=== PATIENT | male | born 1960 | race Caucasian/White ===

== ENCOUNTER → 2016-10-27 | Emergency (ER) | payer BC ==
[~2016-10-27] VITALS: Ht 165.1 cm; Wt 79.4 kg
[~2016-10-27] MED LIST: ACET1TAB43 PO; ASPI-587 PO; ASPIRIN 81 MG CHEW (CHILDREN'S ASA) PO ONE; ATR20T PO; CALC-80 PO; CARB200T6 PO; CEPH500C PO; CHOLESTEROL MED; EPITOL PO; HYDR-3714 PO; IBUP800T26 PO; LOVA20TA2 PO; MULT-1029 PO; PANT40TA PO; RX-NITROGLYCERIN 0.4 MG TAB BTL 25'S SL ONE; SEIZURE MED; SULF1TAB38 PO
--- NOTE | 2016-10-27 09:24 | ED Chest Pain ---
General Chief Complaint: Chest Pain Stated Complaint: CHEST/LEFT ARM PAIN Source: patient Exam Limitations: no limitations History of Present Illness Time seen by provider: 08:40 Initial Comments Here with report of left anterior central chest pain that radiates to the left arm. Describes the central chest pain as aching in the arm pain is numbness. Denies nausea or vomiting but did have some sweating. Started about 630 this morning and persisted but is a little better now. Does have family history with father who had early heart attack. Timing/Duration: 1-3 hours Severity/Quality: moderate, aching Location: central Radiation: arms (left) Activities at Onset: none ASA po CASE MAKER: No NTG SL CASE MAKER: No Associated Symptoms: No abdominal pain, diaphoresis, No fever/chills, No nausea /vomiting, No shortness of breath, No weakness Allergies and Home Medications Allergies Coded Allergies: No Known Drug Allergies (Unverified , 02/25/14) Home Medications Aspirin 81 Mg Tablet.dr, 81 MG PO HS, (Reported) Calcium Carbonate/Vitamin D3 1 Each Tablet, 1 TAB PO BID, (Reported) Carbamazepine 200 Mg Tablet, 200 MG PO TID, (Reported) Cephalexin Monohydrate 500 Mg Capsule, 500 MG PO TID, (Reported) 4 DOSES LEFT OF 10 DAY THERAPY Codeine Phos/Acetaminophen 1 Tab Tablet, 1 TAB PO Q4H PRN for SEVERE PAIN, ( Reported) Lovastatin 20 Mg Tablet, 20 MG PO HS, (Reported) Mu-Vits-Min Th/Lycopene/Lutein 1 Each Tablet, 1 TAB PO DAILY, (Reported) Pantoprazole Sodium 40 Mg Tablet.dr, 40 MG PO HS, (Reported) Review of Systems Constitutional: see HPI, No chills, No fever EENTM: No Symptoms Reported Respiratory: No Symptoms Reported, Denies SOA at Rest, Denies Wheezing Cardiovascular: See HPI, Chest Pain, Denies Edema, Denies Lightheadedness Gastrointestinal: No Symptoms Reported, Denies Nausea, Denies Vomiting Genitourinary: No Symptoms Reported Musculoskeletal: see HPI, muscle pain, No neck pain Skin: no symptoms reported All Other Systems Reviewed Negative Unless Noted: Yes Past Kfniwkt-Xtjofp-Ysxtrr Hx Patient Social History Alcohol Use: Occasionally Uses Recreational Drug Use: No Smoking Status: Never a Smoker Recent Hopitalizations: No Immunizations Up To Date Date of Influenza Vaccine: Apr 02, 2013 Surgeries HX Surgeries: No Respiratory Hx Respiratory Disorders: No Cardiovascular Hx Cardiac Disorders: Yes Neurological Hx Neurological Disorders: Yes (' 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) Reproductive System Hx Reproductive Disorders: No Genitourinary Hx Genitourinary Disorders: No Gastrointestinal Hx Gastrointestinal Disorders: Yes Gastrointestinal Disorders: Gastroesophageal Reflux Musculoskeletal Hx Musculoskeletal Disorders: No Endocrine Hx Endocrine Disorders: No HEENT HX ENT Disorders: No Cancer Hx Cancer: No Psychosocial Hx Psychiatric Problems: No Integumentary HX Skin/Integumentary Disorder: No Blood Transfusions Hx Blood Disorders: No Reviewed Nursing Assessment Reviewed/Agree w Nursing PMH: Yes Family Medical History Family Medial History: Asthma G8 SISTER Cardiovascular disease 19 FATHER, Onset:30s - Cataracts 19 MOTHER Completed stroke G8 SISTER, Onset:50's - 60 Hypertension G8 SISTER G8 SISTER Myocardial infarction 19 FATHER, Onset:30s - 40 Physical Exam Vital Signs Vital Sign - Last 12Hours 10/27/16 08:42 Temp 98.2 Pulse 74 Resp 18 B/P (MAP) 144/36 Capillary Refill : General Appearance: No Apparent Distress, WD/WN HEENT: PERRL/EOMI, Pharynx Normal Neck: Normal Inspection, Non Tender, Supple Respiratory: Chest Non Tender, Lungs Clear, Normal Breath Sounds Cardiovascular: Regular Rate, Rhythm, No Murmur Gastrointestinal: Non Tender, Soft Extremity: Normal Inspection, Normal Range of Motion, Non Tender, No Calf Tenderness Neurologic/Psychiatric: Alert, Oriented x3 Skin: Normal Color, Warm/Dry Progress/Results/Core Measures Results/Orders Lab Results Laboratory Tests Test 10/27/16 09:22 10/27/16 11:44 Range/Units White Blood Count 6.5 4.3-11.0 10^3/uL Red Blood Count 5.13 4.35-5.85 10^6/uL Hemoglobin 15.7 13.3-17.7 G/DL Hematocrit 47 40-54 % Mean Corpuscular Volume 91 80-99 FL Mean Corpuscular Hemoglobin 31 25-34 PG Mean Corpuscular Hemoglobin Concent 34 32-36 G/DL Red Cell Distribution Width 12.9 10.0-14.5 % Platelet Count 176 130-400 10^3/uL Mean Platelet Volume 10.1 7.4-10.4 FL Neutrophils (%) (Auto) 60 42-75 % Lymphocytes (%) (Auto) 25 12-44 % Monocytes (%) (Auto) 11 0-12 % Eosinophils (%) (Auto) 4 0-10 % Basophils (%) (Auto) 1 0-10 % Neutrophils # (Auto) 3.9 1.8-7.8 X 10^3 Lymphocytes # (Auto) 1.6 1.0-4.0 X 10^3 Monocytes # (Auto) 0.7 0.0-1.0 X 10^3 Eosinophils # (Auto) 0.3 0.0-0.3 10^3/uL Basophils # (Auto) 0.0 0.0-0.1 10^3/uL Prothrombin Time 12.4 12.2-14.7 SEC INR Comment 1.0 0.8-1.4 Activated Partial Thromboplast Time 31 24-35 SEC D-Dimer 0.42 0.00-0.49 UG/ML Sodium Level 141 135-145 MMOL/L Potassium Level 4.4 3.6-5.0 MMOL/L Chloride Level 107 98-107 MMOL/L Carbon Dioxide Level 25 21-32 MMOL/L Anion Gap 9 5-14 MMOL/L Blood Urea Nitrogen 14 7-18 MG/DL Creatinine 0.91 0.60-1.30 MG/DL Estimat Glomerular Filtration Rate > 60 BUN/Creatinine Ratio 15 Glucose Level 97 70-105 MG/DL Calcium Level 8.9 8.5-10.1 MG/DL Magnesium Level 2.5 H 1.8-2.4 MG/DL Total Bilirubin 0.6 0.1-1.0 MG/DL Aspartate Amino Transf (AST/SGOT) 25 5-34 U/L Alanine Aminotransferase (ALT/SGPT) 30 0-55 U/L Alkaline Phosphatase 51 40-136 U/L Myoglobin 79.8 71.0 10.0-92.0 NG/ML Troponin I < 0.30 < 0.30 <0.30 NG/ML Total Protein 6.6 6.4-8.2 G/DL Albumin 4.2 3.2-4.5 G/DL Amylase Level 45 25-125 U/L Lipase 30 8-78 U/L My Orders Orders - DONNELL WALKER MD Cbc With Automated Diff (10/27/16 08:46) Magnesium (10/27/16 08:46) Chest 1 View, Ap/Pa Only (10/27/16 08:46) Ekg Tracing (10/27/16 08:46) Cardiac Profile 1 (10/27/16 08:46) Comprehensive Metabolic Panel (10/27/16 08:46) Myoglobin Serum (10/27/16 08:46) Protime With Inr (10/27/16 08:46) Partial Thromboplastin Time (10/27/16 08:46) O2 (10/27/16 08:46) Monitor-Rhythm Ecg Trace Only (10/27/16 08:46) Lipid Panel (10/28/16 06:00) Aspirin Chewable Tablet (Baby Aspirin Ch (10/27/16 09:00) Rx-Nitroglycerin Sl Tabs (Rx-Nitrostat S (10/27/16 09:00) Saline Lock/Iv-Start (10/27/16 08:46) Lipase (10/27/16 08:46) Amylase (10/27/16 08:46) Fibrin Degradation Products (10/27/16 08:46) Ekg Tracing (10/27/16 11:32) Troponin I (10/27/16 11:32) Myoglobin Serum (10/27/16 11:33) Medications Given in ED Current Medications Medications Dose Ordered Sig/David Route Start Time Stop Time Status Last Admin Dose Admin Aspirin 324 mg ONCE ONCE PO 10/27/16 09:00 10/27/16 09:01 DC 10/27/16 09:06 324 MG Vital Signs/I&O Vital Sign - Last 12Hours 10/27/16 08:42 Temp 98.2 Pulse 74 Resp 18 B/P (MAP) 144/36 Progress Note : Progress Note Seen and evaluated. IV, labs, EKG, chest x-ray, nitroglycerin sublingual and ASA 324 mg by mouth ordered. Monitor patient. 1130: Pain remains resolved. No acute findings. Repeat troponin and EKG ordered. Monitor patient. 1220: No acute findings and patient remains pain free. I did discuss the case with Dr. Thornton. He will assist with follow-up. This was discussed with the patient as well who agrees. Discharged home with return precautions. Patient verbalize understanding instructions and agreement with plan. ECG Initial ECG Impression Date: Oct 27, 2016 Initial ECG Impression Time: 08:44 Initial ECG Rate: 73 Initial ECG Rhythm: Normal Sinus Comment Sinus rhythm with left axis deviation. Left atrial abnormality. Similar to previous of 02/25/14 with respect to morphology although axis has moved more to the left. Interpreted by me. EKG : EKG Time: 11:45 Rate: 68 Rhythm: Normal Sinus ECG Impression: Normal Comment Sinus rhythm with normal axis. No evidence of ST elevation UT. Similar to previous done earlier with improved axis. Interpreted by me. Diagnostic Imaging Diagonstic Imaging: Xray Plain Films/CT/US/NM/MRI: chest [facility] [place], [place] NAME: MARY MANSFIELD [facility] REC#: [id number] PT STATUS: REG ER : 1960 PHYSICIAN: DONNELL WALKER MD ADMIT DATE: 10/27/16/ER Draft Date of Exam:10/27/16 CHEST 1 VIEW, AP/PA ONLY EXAM: Portable upright radiograph of the chest. INDICATION: Chest pain. FINDINGS: The lungs are clear. The heart size is at the upper limits of normal. No effusion or pneumothorax. The mediastinum and sinai appear unremarkable. IMPRESSION: No acute process. Dictated on workstation # [id number] Dict: 10/27/16 0933 Trans: 10/27/16 1206 [facility] [id number] Interpreted by: CHELA VILLALPANDO MD Electronically signed by: Reviewed: Reviewed by Me Departure Impression Impression: Primary Impression: Chest pain Qualified Codes: R07.9 - Chest pain, unspecified Disposition: HOME, SELF-CARE Condition: Improved Departure-Patient Inst. Decision time for Depature: 12:26 Referrals: MARCO ANTONIO THORNTON MD (PCP/Family) Primary Care Physician ANIBAL MODI MD Patient Instructions: Chest Pain (DC) Add. Discharge Instructions: All discharge instructions reviewed with patient and/or family. Voiced understanding. Follow-up with your doctor for recheck and further evaluation. Return for worse pain, fever, vomiting, weakness, breathing problems or other concerns as needed. Copy Copies To 1: MARCO ANTONIO THORNTON MD, TIMOTHY D MD Oct 27, 2016 09:24
[2016-10-27 09:33] LABS: BASOPHILS % (AUTO) 1 % (0-10); EOSINOPHILS # (AUTO) 0.3 10^3/uL (0.0-0.3); EOSINOPHILS % (AUTO) 4 % (0-10); LYMPHOCYTES # (AUTO) 1.6 X 10^3 (1.0-4.0); LYMPHOCYTES % (AUTO) 25 % (12-44); MEAN CORPUSCULAR HEMOGLOBIN 31 PG (25-34); MEAN CORPUSCULAR HGB CONC 34 G/DL (32-36); MEAN CORPUSCULAR VOLUME 91 FL (80-99); MEAN PLATELET VOLUME 10.1 FL (7.4-10.4); MONOCYTES # (AUTO) 0.7 X 10^3 (0.0-1.0); MONOCYTES % (AUTO) 11 % (0-12); NEUTROPHILS # (AUTO) 3.9 X 10^3 (1.8-7.8); NEUTROPHILS % (AUTO) 60 % (42-75); PLATELET COUNT 176 10^3/uL (130-400); RED BLOOD COUNT 5.13 10^6/uL (4.35-5.85); RED CELL DISTRIBUTION WIDTH 12.9 % (10.0-14.5); WHITE BLOOD COUNT 6.5 10^3/uL (4.3-11.0)
[2016-10-27 09:43] LABS: PROTHROMBIN TIME PATIENT 12.4 SEC (12.2-14.7)
[2016-10-27 09:51] LABS: ALANINE AMINOTRANSFERASE 30 U/L (0-55); ALBUMIN 4.2 G/DL (3.2-4.5); AMYLASE 45 U/L (25-125); ANION GAP 9 MMOL/L (5-14); ASPARTATE AMINO TRANSFERASE 25 U/L (5-34); BILIRUBIN,TOTAL 0.6 MG/DL (0.1-1.0); BLOOD UREA NITROGEN 14 MG/DL (7-18); BUN/CREATININE RATIO 15; CALCIUM 8.9 MG/DL (8.5-10.1); CARBON DIOXIDE 25 MMOL/L (21-32); CHLORIDE 107 MMOL/L (98-107); CREATININE SERUM 0.91 MG/DL (0.60-1.30); GFR ESTIMATED > 60; GLUCOSE 97 MG/DL (70-105); LIPASE 30 U/L (8-78); MAGNESIUM 2.5 MG/DL (1.8-2.4); POTASSIUM 4.4 MMOL/L (3.6-5.0); SODIUM 141 MMOL/L (135-145); TOTAL PROTEIN 6.6 G/DL (6.4-8.2)
--- NOTE | 2016-10-27 09:57 | Diagnostic Imaging Report ---
EXAM: Portable upright radiograph of the chest. INDICATION: Chest pain. FINDINGS: The lungs are clear. The heart size is at the upper limits of normal. No effusion or pneumothorax. The mediastinum and sinai appear unremarkable. IMPRESSION: No acute process. Dictated by: Dictated on workstation # [id number]
[2016-10-27 09:58] LABS: MYOGLOBIN SERUM 79.8 NG/ML (10.0-92.0)
[2016-10-27 12:13] LABS: TROPONIN I < 0.30 NG/ML (<0.30)
[2016-10-27 12:31] VITALS: BP 150/96
== END | disposition home or self-care (01) ==
LOC: EDUNIT# 08:40 → ER 08:41
DX: R07.9 Chest pain, unspecified (principal); M79.602 Pain in left arm; Z79.82 Long term (current) use of aspirin; Z79.899 Other long term (current) drug therapy
CPT/HCPCS: 36415; 71010; 80053; 82150; 83690; 83735; 83874; 84484; 85025; 85379; 85610; 85730; 93005; 93041

== ENCOUNTER → 2016-11-14 | Outpatient (CLI) | payer BC ==
[~2016-11-14] MED LIST changes: -ASPIRIN 81 MG CHEW (CHILDREN'S ASA) PO ONE; +CATHETER FLUSH 10 ML SYR IV PRN; -RX-NITROGLYCERIN 0.4 MG TAB BTL 25'S SL ONE
[2016-11-14 08:56] VITALS: BP 130/83
--- NOTE | 2016-11-14 15:10 | STRESS TEST ---
DATE OF SERVICE: 11/14/2016 REFERRING PHYSICIAN: Dr. Zayas. INDICATION: Chest pain. FINDINGS: Baseline heart rate is 69, baseline blood pressure 130/87. Baseline EKG is sinus rhythm with no ischemic changes. SUMMARY: The patient was injected with 10.41 mCi of technetium-99 Myoview and the resting images were obtained. Then, the patient started exercising with the baseline heart rate, blood pressure and EKG mentioned above. At minute 5 and 45 seconds, the patient was injected with 29.5 mCi of technetium 99 Myoview. He was able to finish a total of 6 minutes and 50 seconds on standard Suraj protocol. With peak exercise level EKG was showing [address] depression in II, III, aVF. There is mild ST elevation noted in V1 only with incomplete right bundle branch block that persisted in recovery. The resting and stress images were reviewed and compared in the short axis, horizontal long axis, and vertical long axis views. Review of the images showed diaphragmatic attenuation with good radiotracer uptake, no significant ischemia or infarction. SSS is 2, SDS 2, TID value 0.92. On the gated images, the left ventricle appeared to be normal size with normal contractility. Calculated ejection fraction 67%. CONCLUSIONS: 1. Fair exercise tolerance. A total of 6 minutes 50 seconds on standard Suraj protocol, total of 10.1 mets, achieving 90% of maximum expected heart rate. 2. Nondiagnostic EKG changes with exercise, especially [address] elevation in V1 only with nondiagnostic ST depression in II, III, aVF. 3. No significant ischemia or infarction on SPECT images. 4. Normal left ventricular size with normal contractility. Calculated ejection fraction 67%. Job ID: [id number] DocumentID: [id number] Dictated Date: 11/14/2016 11:48:37 Pipe Organ Installer Date: 11/14/2016 13:38:37 Dictated By: ANIBAL MODI MD
== END ==
LOC: CARD 07:22
PROVIDERS: ATTEND Internal Medicine Cardiovascular Disease
DX: R07.9 Chest pain, unspecified (principal); R78.2 Finding of cocaine in blood; R06.02 Shortness of breath
CPT/HCPCS: 78452; 93017

== ENCOUNTER → 2016-11-17 | Outpatient (CLI) | payer BC ==
[~2016-11-17] MED LIST changes: -CATHETER FLUSH 10 ML SYR IV PRN
--- NOTE | 2016-11-18 12:31 | ECHOCARDIOGRAPHY REPORT ---
DATE OF SERVICE: 11/17/2016 2D ECHOCARDIOGRAM REFERRING PHYSICIAN: Dr. Barry Connor. MEASUREMENT: LVID end diastolic 4.1. IVS thickness 1.2. LVPW thickness 1.2. Left atrial diameter 3.0. Ejection fraction 60%. FINDINGS: 1. Technical quality is good. 2. The left ventricle is normal in size with mild left ventricular hypertrophy noted diffusely. Systolic function appeared to be normal. Estimated ejection fraction 60%. Diastolic dysfunction is suggested by Doppler. 3. The left atrium is normal in size. No clot or thrombus was seen within the left atrium. 4. The right atrium and right ventricle are normal in size. No clot or thrombus was seen within the right side. 5. Mitral valve is normal in morphology with mild mitral regurgitation noted by color Doppler flow. No mitral valve prolapse. No mitral valve stenosis. 6. Aortic valve is trileaflet with normal opening and closing pattern. No significant aortic stenosis or regurgitation was seen. 7. Tricuspid valve is normal in morphology with mild tricuspid regurgitation noted by color Doppler flow. Doppler across tricuspid valve estimated pulmonary artery pressure of 19 plus right atrial pressure. 8. Pulmonic valve is functioning normally. 9. No pericardial effusion. CONCLUSION: 1. Mild left ventricular hypertrophy with normal systolic function, estimated ejection fraction 60%. Diastolic dysfunction is suggested by Doppler. 2. Mild mitral and tricuspid regurgitation. 3. Estimated pulmonary artery pressure of 25 mmHg. Job ID: [id number] DocumentID: [id number] Dictated Date: 11/18/2016 07:58:22 Extractor Machine Operator Date: 11/18/2016 08:56:04 Dictated By: ANIBAL MODI MD
== END ==
LOC: CARD 12:32
PROVIDERS: ATTEND Internal Medicine Cardiovascular Disease
DX: E78.2 Mixed hyperlipidemia (principal); R07.9 Chest pain, unspecified; R06.02 Shortness of breath; I08.1 Rheumatic disorders of both mitral and tricuspid valves
CPT/HCPCS: 93306

== ENCOUNTER → 2017-09-06 | Outpatient (CLI) | payer BC ==
--- NOTE | 2017-09-06 10:11 | Diagnostic Imaging Report ---
INDICATION: Left upper extremity numbness. TIME OF EXAM: 09:18 a.m. FINDINGS: Multiple views of the cervical spine were obtained. Curvature of the cervical spine is normal. There is minimal retrolisthesis of C3 on C4 and C4 on C5. Significant degenerative disc disease at C3-C4 and C6-C7 level is seen with disc space narrowing and marginal osteophyte formation. The prevertebral tissues are normal. The odontoid is intact. No fractures are seen. IMPRESSION: Cervical spondylosis. No acute bony abnormality is detected. Dictated by: Dictated on workstation # [id number]
== END ==
LOC: RAD 08:42
PROVIDERS: ATTEND Family Medicine
DX: M47.812 Spondylosis without myelopathy or radiculopathy, cervical region (principal)
CPT/HCPCS: 72040

== ENCOUNTER → 2017-10-11 | Outpatient (CLI) | payer BC ==
--- NOTE | 2017-10-11 11:43 | Diagnostic Imaging Report ---
INDICATION: Fall with left lower anterior rib pain. Time of exam 11:24 AM Multiple views of left ribs were obtained. No displaced rib fracture is identified. No parenchymal contusion, effusion or pneumothorax is seen. IMPRESSION: No acute abnormality is detected. Dictated by: Dictated on workstation # [id number]
== END ==
LOC: RAD 10:52
PROVIDERS: ATTEND Family Medicine
DX: R07.81 Pleurodynia (principal); W19.XXXA Unspecified fall, initial encounter
CPT/HCPCS: 71100

== ENCOUNTER → 2019-06-06 | Outpatient (CLI) | payer BC ==
--- NOTE | 2019-06-06 15:45 | Diagnostic Imaging Report ---
INDICATION: Pain and swelling to the right upper extremity. TECHNIQUE: Grayscale, color-flow, and duplex Doppler evaluation of the right upper extremity deep venous system was performed. FINDINGS: The right internal jugular vein as well as the right subclavian and axillary veins are widely patent. The brachial vein is patent. The basilic, cephalic, radial, and ulnar veins are patent. No thrombus is identified. IMPRESSION: No evidence of right upper extremity DVT. Dictated by: Dictated on workstation # [id number]
== END ==
LOC: RAD 14:48
PROVIDERS: ATTEND Family Medicine
DX: M79.89 Other specified soft tissue disorders (principal)

== ENCOUNTER 2020-09-08 05:33 | Outpatient (RCR) | payer BC ==
[~2020-09-08] VITALS: Ht 162.5 cm; Wt 76.0 kg
== END 2020-09-08 15:31 | disposition home or self-care (01) ==
LOC: PREOP 05:33
PROVIDERS: ATTEND Surgery
DX: Z01.818 Encounter for other preprocedural examination (principal)

== ENCOUNTER 2020-09-15 07:56 | Day surgery (SDC) | payer BC ==
[2020-09-15] VITALS (7 sets, daily range): BP systolic 113–132; BP diastolic 65–88
[~2020-09-15] VITALS: Ht 165.1 cm; Wt 75.8 kg
[2020-09-15] MEDS ORDERED: LACTATED RINGERS 1,000 ML IV ONE (08:03)
[2020-09-15] MEDS ORDERED: MIDAZOLAM 2 MG/2 ML (VERSED) VIAL ONE (08:03)
[2020-09-15] MEDS ORDERED: PROPOFOL INJECTION 50 ML IV ONE (08:03)
[2020-09-15] MEDS ORDERED: LACTATED RINGERS 1,000 ML IV STA (08:05)
--- NOTE | 2020-09-15 08:18 | Progress Note-Pre Operative ---
Pre-Operative Progress Note H&P Reviewed The H&P was reviewed, patient examined and no changes noted. Date Seen by Provider: Sep 15, 2020 Time Seen by Provider: 08:17 Date H&P Reviewed: Sep 15, 2020 Time H&P Reviewed: 08:17 Pre-Operative Diagnosis: screening colonoscopy JAME CHAVIRA DO Sep 15, 2020 08:18
[2020-09-15] MEDS ORDERED: CLC600T PO (08:31)
[2020-09-15] MEDS ORDERED: LOVA20TA2 PO (08:31)
[2020-09-15] MEDS ORDERED: ASPI-999 PO (08:31)
[2020-09-15] MEDS ORDERED: MULT-1136 PO (08:31)
[2020-09-15] MEDS ORDERED: LEVE10006 PO (08:31)
--- NOTE | 2020-09-15 10:14 | Progress Note-Post Operative ---
Post-Operative Progess Note Surgeon (s)/Business And Services Instructor (s) Surgeon JAME CHAVIRA DO Business And Services Instructor: na Pre-Operative Diagnosis screening colonoscopy Post-Operative Diagnosis Diverticulosis and colon polyps x 2 Procedure & Operative Findings Date of Procedure 09/15/20 Procedure Performed/Findings colonoscopy c hot bx polypectomy x 2 Anesthesia Type per mda Estimated Blood Loss Estimated blood loss (mL): none Specimens/Packing Specimens Removed ascending polyp, sigmoid polyp JAME CHAVIRA DO Sep 15, 2020 10:14
--- NOTE | 2020-09-15 10:16 | Discharge Inst-Simple/Standard ---
Discharge Inst-Standard Discharge Medications New, Converted or Re-Newed RX: RX on Chart Patient Instructions/Follow Up Plan of Care/Instructions/FU: 2-3 weeks [place] Activity as Tolerated: Yes Discharge Diet: Regular Diet (high fiber) JAME CHAVIRA DO Sep 15, 2020 10:15
--- NOTE | 2020-09-15 12:14 | OPERATIVE REPORT ---
DATE OF SERVICE: PREOPERATIVE DIAGNOSIS: Screening colonoscopy. POSTOPERATIVE DIAGNOSES: Diverticulosis, colon polyp x2. PROCEDURE: Colonoscopy with hot biopsy polypectomy x2. SURGEON: Jame Doll DO ANESTHESIA: Per BLOCKER HAND. ESTIMATED BLOOD LOSS: None. COMPLICATIONS: None. INDICATIONS: The patient is a 60-year-old male needing screening colonoscopy. He understands risks and benefits and wishes to proceed with procedure. Consent was signed in the chart. DESCRIPTION OF PROCEDURE: The patient was taken to the endoscopy suite, placed in left lateral recumbent position. Timeout was performed. Digital rectal exam was performed. There were no palpable polyps, masses or ulcerations. Scope was inserted in the rectum and advanced all the way to cecum with minimal difficulty. Prep was adequate. Scope was then slowly retracted back. No polyps, masses or ulcerations in the cecum. Small polyp in the ascending colon, which hot biopsy polypectomy was performed. Scope was then continuously retracted back into the transverse colon. No polyps, masses or ulcerations in the transverse and descending. In the sigmoid colon, a small polyp was present, which hot biopsy polypectomy was performed. There was also some diverticulosis. The scope was then continuously retracted back into the rectum where it was also retroflexed noting no other pathology. Scope was returned to its normal position, slowly withdrawn until completely removed. The patient tolerated procedure well without any complications, taken to recovery room in stable condition. RECOMMENDATIONS: The patient recommended high fiber diet. Recommend repeat colonoscopy in 5 years. Any issues before that be seen at that time. The patient will follow up on pathology in 2 to 3 weeks. Job ID: [id number] DocumentID: [id number] Dictated Date: 09/15/2020 10:19:46 Manager Housekeeping Date: 09/15/2020 12:12:57 Dictated By: JAME DOLL DO
== END 2020-09-15 11:05 | disposition home or self-care (01) ==
LOC: ENDO 07:56
PROVIDERS: ATTEND Surgery
DX: Z12.11 Encounter for screening for malignant neoplasm of colon (principal); D12.2 Benign neoplasm of ascending colon; D12.5 Benign neoplasm of sigmoid colon; K57.30 Diverticulosis of large intestine without perforation or abscess without bleeding; K21.9 Gastro-esophageal reflux disease without esophagitis; Z79.899 Other long term (current) drug therapy
CPT/HCPCS: 88305

== ENCOUNTER 2022-07-11 09:25 | Emergency (ER) | payer BC ==
[~2022-07-11] VITALS: Ht 165 cm; Wt 72.0 kg
[~2022-07-11 09:25] MED LIST changes: +ASPI-999 PO; +CALC600T91 PO; +LEVE10006 PO; +MULT-1136 PO
[2022-07-11] MEDS ORDERED: NITROGLYCERIN 0.4 MG SL TABS BTL 25'S SL PRN (09:45)
[2022-07-11] MEDS ORDERED: ASPIRIN 81 MG CHEW (CHILDREN'S ASA) PO ONE (09:45)
[2022-07-11 10:06] LABS: BASOPHILS # (AUTO) 0.1 10^3/uL (0.0-0.1); BASOPHILS % (AUTO) 1 % (0-10); EOSINOPHILS # (AUTO) 0.4 10^3/uL (0.0-0.3); EOSINOPHILS % (AUTO) 6 % (0-10); HEMATOCRIT 46 % (40-54); HEMOGLOBIN 15.7 g/dL (13.3-17.7); LYMPHOCYTES # (AUTO) 1.9 10^3/uL (1.0-4.0); LYMPHOCYTES % (AUTO) 26 % (12-44); MEAN CORPUSCULAR HEMOGLOBIN 32 pg (25-34); MEAN CORPUSCULAR HGB CONC 35 g/dL (32-36); MEAN CORPUSCULAR VOLUME 92 fL (80-99); MEAN PLATELET VOLUME 9.2 fL (9.0-12.2); MONOCYTES # (AUTO) 0.7 10^3/uL (0.0-1.0); MONOCYTES % (AUTO) 9 % (0-12); NEUTROPHILS # (AUTO) 4.2 10^3/uL (1.8-7.8); NEUTROPHILS % (AUTO) 58 % (42-75); PLATELET COUNT 181 10^3/uL (130-400); WHITE BLOOD COUNT 7.3 10^3/uL (4.3-11.0)
--- NOTE | 2022-07-11 10:07 | ED Chest Pain ---
General Chief Complaint: Chest Pain Stated Complaint: CHEST PAINS Nursing Triage Note: Pt here with chest pain that started this morning at 0730; states he had pain in his right leg and right arm; then pain in his midsternum that he describes as sharp and rates 6/10. Source: patient (PT WITH SPEECH IMPEDIMENT, DIFFICULT TO UNDERSTAND. 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 MODI. ON REVIEW OF OLD RECORDS, PT HAS BEEN HERE A FEW TIMES SINCE 2013 WITH C/O CHEST PAIN PT STATES HIS ONLY MEDICAL PROBLEM IS SEIZURES AND THAT IS THE ONLY MEDICATION HE TAKES. HE DENIES ANY RECENT SEIZURES HE IS NOT ON ANY ASPIRIN. PT DOES NOT SMOKE, DRINKS 1 BEER A DAY, AND DENIES DRUG USE. PCP: DR. THORNTON Allergies and Home Medications Allergies Coded Allergies: No Known Drug Allergies (Unverified , 02/25/14) Patient Home Medication List Home Medication List Reviewed: Yes Aspirin (Aspirin) 81 Mg Tab.chew, 81 MG PO DAILY, (Reported) Entered as Reported by: SHANNON RO on 09/15/20830 Calcium Carbonate (Calcium) 600 Mg Tablet, 600 MG PO BID, (Reported) Entered as Reported by: SHANNON RO on 09/15/20830 Levetiracetam (Levetiracetam) 1,000 Mg Tablet, 1,000 MG PO DAILY, (Reported) Entered as Reported by: SHANNON RO on 09/15/20830 Lovastatin (Lovastatin) 20 Mg Tablet, 20 MG PO DAILY, (Reported) Entered as Reported by: SHANNON RO on 09/15/20830 Multivitamin (Multivitamin) 1 Each Tablet, 1 EACH PO DAILY, (Reported) Entered as Reported by: SHANNON RO on 09/15/20830 Pantoprazole Sodium (Protonix) 40 Mg Tablet.dr 40 MG PO DAILY Prescribed by: AMBER AGUILAR on 07/11/22 1257 Review of Systems Review of Systems Constitutional: no symptoms reported Respiratory: No Symptoms Reported Cardiovascular: See HPI, Chest Pain, Palpitations Gastrointestinal: See HPI; Denies Abdominal Pain; Nausea; Denies Vomiting Genitourinary: No Symptoms Reported Musculoskeletal: no symptoms reported Skin: no symptoms reported Psychiatric/Neurological: No Symptoms Reported Endocrine: No Symptoms Reported Hematologic/Lymphatic: No Symptoms Reported Past Vleinws-Bjuecw-Rjjhnf Hx Patient Social History Tobacco Use?: No Smoking Status: Never a Smoker Smokeless Tobacco Frequency: Never a User Substance use?: No Alcohol Use?: Yes Alcohol type: Beer Alcohol Frequency: Daily Past Medical History Surgeries: No Respiratory: No Cardiac: No Neurological: Yes ( 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) Seizure Disorder, Traumatic Brain Injury Reproductive Disorders: No Genitourinary: No Gastrointestinal: Yes Gastroesophageal Reflux, Polyps Musculoskeletal: No Endocrine: No HEENT: Yes (SPEECH IMPEDIMENT) Cancer: No Psychosocial: No Integumentary: No Blood Disorders: No Family Medical History Asthma G8 SISTER Cardiovascular disease 19 FATHER, Onset:30's - 40 Cataracts 19 MOTHER Completed stroke G8 SISTER, Onset:50's - 60 Hypertension G8 SISTER G8 SISTER Myocardial infarction 19 FATHER, Onset:30's - 40 COLONOSCOPY WITH POLYPECTOMY 09/15/[address] ARMAS Physical Exam Vital Signs Vital Signs - First Documented 07/11/22 09:58 Temp 36.3 Pulse 80 Resp 18 B/P (MAP) 121/91 (101) Pulse Ox 96 O2 Delivery Room Air Capillary Refill : Less Than 3 Seconds Height, Weight, BMI Height: 5'5.00" Weight: 175lbs. 4.0oz. [id number]; 26.00 BMI Method:Stated General Appearance: No Apparent Distress, WD/WN, Other (DOES NOT APPEAR ILL OR TO BE IN ANY DISCOMFORT OR DISTRESS. PT WITH SPEECH IMPEDIMENT--DIFFICULT TO UNDERSTAND ) Neck: Normal Inspection Respiratory: Chest Non Tender, Normal Breath Sounds, No Accessory Muscle Use, No Respiratory Distress Cardiovascular: Regular Rate, Rhythm, No Edema, No JVD, No Murmur, Normal Peripheral Pulses Gastrointestinal: No Pulsatile Mass, Non Tender, Soft Extremity: Normal Capillary Refill, Normal Inspection, Normal Range of Motion, Non Tender, No Calf Tenderness, No Pedal Edema Neurologic/Psychiatric: Alert, Oriented x3, No Motor/Sensory Deficits, Normal Mood/Affect, hose sprayer II-XII Norm as Tested Skin: Normal Color; No Rash Progress/Results/Core Measures Results/Orders Lab Results Laboratory Tests Test 07/11/22 10:00 07/11/22 12:00 Range/Units White Blood Count 7.3 4.3-11.0 10^3/uL Red Blood Count 4.95 4.30-5.52 10^6/uL Hemoglobin 15.7 13.3-17.7 g/dL Hematocrit 46 40-54 % Mean Corpuscular Volume 92 80-99 fL Mean Corpuscular Hemoglobin 32 25-34 pg Mean Corpuscular Hemoglobin Concent 35 32-36 g/dL Red Cell Distribution Width 12.4 10.0-14.5 % Platelet Count 181 130-400 10^3/uL Mean Platelet Volume 9.2 9.0-12.2 fL Immature Granulocyte % (Auto) 0 % Neutrophils (%) (Auto) 58 42-75 % Lymphocytes (%) (Auto) 26 12-44 % Monocytes (%) (Auto) 9 0-12 % Eosinophils (%) (Auto) 6 0-10 % Basophils (%) (Auto) 1 0-10 % Neutrophils # (Auto) 4.2 1.8-7.8 10^3/uL Lymphocytes # (Auto) 1.9 1.0-4.0 10^3/uL Monocytes # (Auto) 0.7 0.0-1.0 10^3/uL Eosinophils # (Auto) 0.4 H 0.0-0.3 10^3/uL Basophils # (Auto) 0.1 0.0-0.1 10^3/uL Immature Granulocyte # (Auto) 0.0 0.0-0.1 10^3/uL Prothrombin Time 13.2 12.2-14.7 SEC INR Comment 1.0 0.8-1.4 Activated Partial Thromboplast Time 34 24-35 SEC D-Dimer 0.60 H 0.00-0.49 UG/ML Sodium Level 139 135-145 MMOL/L Potassium Level 3.6 3.6-5.0 MMOL/L Chloride Level 107 98-107 MMOL/L Carbon Dioxide Level 23 21-32 MMOL/L Anion Gap 9 5-14 MMOL/L Blood Urea Nitrogen 10 7-18 MG/DL Creatinine 0.92 0.60-1.30 MG/DL Estimat Glomerular Filtration Rate 93 BUN/Creatinine Ratio 11 Glucose Level 98 70-105 MG/DL Calcium Level 9.0 8.5-10.1 MG/DL Corrected Calcium 8.9 8.5-10.1 MG/DL Magnesium Level 2.3 1.6-2.4 MG/DL Total Bilirubin 0.6 0.1-1.0 MG/DL Aspartate Amino Transf (AST/SGOT) 13 5-34 U/L Alanine Aminotransferase (ALT/SGPT) 16 0-55 U/L Alkaline Phosphatase 52 40-136 U/L Total Creatine Kinase 88 30-200 U/L Creatine Kinase MB 2.2 <6.6 NG/ML Myoglobin 66.0 10.0-92.0 NG/ML Troponin I < 0.028 < 0.028 <0.028 NG/ML B-Type Natriuretic Peptide 11.3 <100.0 PG/ML Total Protein 6.6 6.4-8.2 GM/DL Albumin 4.1 3.2-4.5 GM/DL Amylase Level 34 25-125 U/L Lipase 29 8-78 U/L My Orders Orders - AMBER AGUILAR DO Cbc With Automated Diff (07/11/22 09:42) Magnesium (07/11/22 09:42) Chest 1 View, Ap/Pa Only (07/11/22 09:42) Ekg Tracing (07/11/22 09:42) Comprehensive Metabolic Panel (07/11/22 09:42) Myoglobin Serum (07/11/22 09:42) Protime With Inr (07/11/22 09:42) Partial Thromboplastin Time (07/11/22 09:42) O2 (07/11/22 09:42) Monitor-Rhythm Ecg Trace Only (07/11/22 09:42) Ed Iv/Invasive Line Start (07/11/22 09:42) Creatine Kinase (07/11/22 09:42) Creatine Kinase Mb (07/11/22 09:42) Lipase (07/11/22 09:42) Amylase (07/11/22 09:42) Bnp Elen (07/11/22 09:42) Fibrin Degradation Products (07/11/22 09:42) Troponin I Elen (07/11/22 09:42) Nitroglycerin 0.4 Mg Btl 25's (Nitrostat (07/11/22 09:45) Aspirin Chewable Tablet (Baby Aspirin Ch (07/11/22 09:45) Ct Angio Chest W (R/O Pe) (07/11/22 11:24) Iohexol Injection (Omnipaque 350 Mg/Ml 1 (07/11/22 11:30) Ns (Ivpb) (Sodium Chloride 0.9% Ivpb Bag (07/11/22 11:30) Troponin I Elen (07/11/22 12:01) Medications Given in ED Vital Signs/I&O 07/11/22 07/11/22 07/11/22 07/11/22 09:58 10:16 11:22 13:08 Temp 36.3 Pulse 80 80 80 76 Resp 18 18 18 16 B/P (MAP) 121/91 (101) 145/82 (103) 117/74 (88) 135/100 Pulse Ox 96 96 97 O2 Delivery Room Air Room Air Room Air Room Air Blood Pressure Mean: 101 Progress Progress Note : Progress Note GIVEN ASPIRIN AND NTG X1--PAIN IS IMPROVED, BUT DROPPED BP, THEN BP QUICKLY RECOVERED WITHOUT TREATMENT. NO COMPLAINTS FOR REMAINDER OF ER STAY REPEAT TROPONIN IS NEGATIVE, EKG DOES NOT SHOW ANY ACUTE CHANGES AND PT IS PAIN- FREE CXR AND CT CHEST ANGIOGRAM ARE BOTH NORMAL. REVIEWED ALL TEST RESULTS, NEED FOR FOLLOW UP, SYMPTOMATIC MEDICATIONS, AND RETURN PRECAUTIONS Initial ECG Impression Date: Jul 11, 2022 Initial ECG Impression Time: 09:45 Initial ECG Rate: 75 Initial ECG Rhythm: Normal Sinus Initial ECG Comparisson: Unchanged (NO CHANGE FROM 10/27/2016) Comment INTERPRETED BY ME. Diagnostic Imaging Comments CXR--PER RADIOLOGIST REPORT FINDINGS: Lungs clear. No failure, effusion or pneumothorax. IMPRESSION: No acute appearing abnormality. CT CHEST ANGIOGRAM--PER RADIOLOGIST REPORT FINDINGS: There is good opacification of pulmonary arteries without intraluminal filling defect. Thoracic aorta is of normal caliber. There is mild atherosclerotic calcification. Coronary artery calcifications are also present. There are areas of bullous emphysema most pronounced in the right lower lobe. There is no consolidation or evidence of discrete mass. No significant pleural or pericardial fluid is identified. There is a small hiatal hernia. Note is made of left convexity curvature of the upper thoracic spine. IMPRESSION: No CTA evidence of pulmonary embolism or other acute abnormality within the thorax. Reviewed: Reviewed by Me Departure Communication (Admissions) [id number]--SPOKE WITH DR. FARRIS, HE[employer], HE ADVISES TO SEND PT HOME AND FOLLOW UP WITH CARDIOLOGY, AND START ON PPI Impression Primary Impression: Chest pain Additional Impression: POSSIBLE GERD Disposition: HOME, SELF-CARE Condition: Improved Departure-Patient Inst. Decision time for Depature: 12:55 Referrals: MARCO ANTONIO THORNTON MD (PCP/Family) Primary Care Physician ANIBAL MODI MD, DAVID L JR, MD Patient Instructions: Chest Pain, Adult ED, Acid Reflux and GERD in Adults (DC) Add. Discharge Instructions: HOME, REST TAKE YOUR MEDICATIONS PRESCRIBED FOLLOW UP WITH DR. FARRIS OR DR. MODI FOR FURTHER CARE--CALL TODAY TO MAKE AN APPOINTMENT RETURN TO ER IF YOUR SYMPTOMS RETURN All discharge instructions reviewed with patient and/or family. Voiced understanding. Scripts Pantoprazole Sodium (Protonix) 40 Mg Tablet. 40 MG PO DAILY, #15 TAB Prov: AMBER AGUILAR DO 07/11/22 AMBER AGUILAR DO Jul 11, 2022 10:07
[2022-07-11 10:23] LABS: PROTHROMBIN TIME PATIENT 13.2 SEC (12.2-14.7)
[2022-07-11 10:28] LABS: ALBUMIN 4.1 GM/DL (3.2-4.5); BILIRUBIN,TOTAL 0.6 MG/DL (0.1-1.0); CREATININE SERUM 0.92 MG/DL (0.60-1.30); MAGNESIUM 2.3 MG/DL (1.6-2.4); POTASSIUM 3.6 MMOL/L (3.6-5.0); TOTAL PROTEIN 6.6 GM/DL (6.4-8.2)
--- NOTE | 2022-07-11 10:30 | Diagnostic Imaging Report ---
INDICATION: Chest pain. FINDINGS: Lungs clear. No failure, effusion or pneumothorax. IMPRESSION: No acute appearing abnormality. Dictated by: Dictated on workstation # [id number]
[2022-07-11 10:35] LABS: CREATINE KINASE MB 2.2 NG/ML (<6.6)
[2022-07-11] MEDS ORDERED: IOHEXOL 350 MG/ML 100 ML (OMNIPAQUE 350) VIAL IV ONE (11:30)
[2022-07-11] MEDS ORDERED: NS 100 ML (IVPB) BAG IV ONE (11:30)
--- NOTE | 2022-07-11 12:18 | Diagnostic Imaging Report ---
INDICATION: Chest pain. CTA of the thorax is performed after bolus intravenous administration of iodinated contrast. 3-D reformatted images are produced. All CT scans use one or more of the following dose optimizing techniques: automated exposure control, MA and/or KvP adjustment based on patient size and exam type or iterative reconstruction. FINDINGS: There is good opacification of pulmonary arteries without intraluminal filling defect. Thoracic aorta is of normal caliber. There is mild atherosclerotic calcification. Coronary artery calcifications are also present. There are areas of bullous emphysema most pronounced in the right lower lobe. There is no consolidation or evidence of discrete mass. No significant pleural or pericardial fluid is identified. There is a small hiatal hernia. Note is made of left convexity curvature of the upper thoracic spine. IMPRESSION: No CTA evidence of pulmonary embolism or other acute abnormality within the thorax. Dictated by: Dictated on workstation # [id number]
[2022-07-11] MEDS ORDERED: PANT40TA2 PO (12:57)
[2022-07-11 13:08] VITALS: BP 135/100
== END 2022-07-11 13:08 | disposition home or self-care (01) ==
LOC: EDUNIT# 09:25 → ER 09:27
DX: R07.9 Chest pain, unspecified (principal)
CPT/HCPCS: 36415; 71045; 71275; 80053; 82150; 82550; 82553; 83690; 83735; 83874; 83880; 84484; 85025; 85379; 85610; 85730; 93005; 93041

== ENCOUNTER → 2022-08-17 | Outpatient (CLI) | payer BC ==
[~2022-08-17] MED LIST changes: +CATHETER FLUSH 10 ML SYR IVP PRN; +PANT40TA2 PO
[2022-08-17 12:41] VITALS: BP 148/91
--- NOTE | 2022-08-17 16:43 | Cardiology Stress Test Report ---
Stress Test Report Date of Procedure/Referring: Date of Procedure: Aug 17, 2022 PCP Marco Antonio Thornton MD Admitting Physician Admitting Physician: Attending Physician: Sophia Palma MD Indications: HTN Baseline Heart Rate: 71 Baseline Blood Pressure: Blood Pressure Systolic: 148 Blood Pressure Diastolic: 91 Vital Signs Date Time Temp Pulse Resp B/P (MAP) Pulse Ox O2 Delivery O2 Flow Rate FiO2 08/17/22 12:41 71 148/91 (110) Baseline Vital Signs Vital Signs Date Time Temp Pulse Resp B/P (MAP) Pulse Ox O2 Delivery O2 Flow Rate FiO2 08/17/22 12:41 71 148/91 (110) Baseline EKG: Baseline EKG: NSR Summary: After explaining the procedure and details to the patient, he signed the co nsent and was brought to the stress nuclear laboratory. Patient exercised on standard Suraj protocol, EKG, heart rate and blood pressure were monitored continuously, resting and stress doses of radio tracer were injected, imaging was acquired and reviewed in the short axis, horizontal long axis and vertical long axis views Patient was able to exercise for a total of 6 minutes on Suraj protocol, METs 7.3 Maximum heart rate 145 Maximum blood pressure 244/102 Stress EKG, Minimal nondiagnostic changes Recovery EKG, Return to baseline TID: 1.04 SSS: 5 SDS: 3 EF: 64 Conclusion: Good exercise tolerance for a total of 6 minutes on standard Suraj protocol, 7.3 METS achieving 92% of maximal expected heart rate Appropriate heart rate response to exercise with hypertensive response to exercise with peak blood pressure 244/102 return to baseline during recovery Mild nondiagnostic EKG changes with exercise return to baseline during recovery Diaphragmatic attenuation with mild decreased uptake at the mid to apical inferior wall with mild reversibility. Probably secondary to diaphragmatic attenuation Normal left ventricular size, ejection fraction 64% Copy Copies To 1: MARCO ANTONIO THORNTON MD, BASHAR J MD Aug 17, 2022 16:43
== END ==
LOC: CARD 09:27
PROVIDERS: ATTEND Internal Medicine Cardiovascular Disease
DX: I10 Essential (primary) hypertension (principal); I25.10 Atherosclerotic heart disease of native coronary artery without angina pectoris; J98.6 Disorders of diaphragm
CPT/HCPCS: 78452; 93017; A9502; C8929; 93306

== ENCOUNTER 2022-11-09 10:00 | Day surgery (SDC) | payer BC ==
[~2022-11-09] VITALS: Ht 165 cm; Wt 72.8 kg
[2022-11-09] VITALS (10 sets, daily range): BP systolic 114–142; BP diastolic 72–89
[2022-11-09 08:22] LABS: BILIRUBIN,URINE NEGATIVE (NEGATIVE); CLARITY,URINE CLEAR; COLOR,URINE YELLOW; GLUCOSE, URINE (UA) NEGATIVE (NEGATIVE); KETONES,URINE NEGATIVE (NEGATIVE); LEUKOCYTE ESTERASE ,URINE NEGATIVE (NEGATIVE); NITRITE,URINE NEGATIVE (NEGATIVE); PROTEIN,URINE NEGATIVE (NEGATIVE)
[2022-11-09 08:24] LABS: HEMATOCRIT 46 % (40-54); HEMOGLOBIN 15.9 g/dL (13.3-17.7); MEAN CORPUSCULAR HEMOGLOBIN 32 pg (25-34); MEAN CORPUSCULAR HGB CONC 34 g/dL (32-36); MEAN CORPUSCULAR VOLUME 93 fL (80-99); MEAN PLATELET VOLUME 9.6 fL (9.0-12.2); PLATELET COUNT 178 10^3/uL (130-400)
--- NOTE | 2022-11-09 08:35 | Diagnostic Imaging Report ---
INDICATION: CHEST PAIN. COMPARISON: 07/11/2022. FINDINGS: Single frontal view of the chest demonstrates normal heart size and pulmonary vascularity. The lungs are well aerated and clear. No large pleural effusion or pneumothorax is seen. The visualized osseous structures show no acute abnormalities. IMPRESSION: No acute cardiopulmonary process. Dictated by: Dictated on workstation # [id number]
[2022-11-09 08:37] LABS: BACTERIA,URINE NEGATIVE /HPF
[2022-11-09 08:45] LABS: ALBUMIN 4.2 GM/DL (3.2-4.5); BILIRUBIN,TOTAL 0.9 MG/DL (0.1-1.0); CALCIUM 8.5 MG/DL (8.5-10.1); CREATININE SERUM 0.94 MG/DL (0.60-1.30); POTASSIUM 4.2 MMOL/L (3.6-5.0); TOTAL PROTEIN 6.9 GM/DL (6.4-8.2)
[2022-11-09 08:48] LABS: PROTHROMBIN TIME PATIENT 13.2 SEC (12.2-14.7)
--- NOTE | 2022-11-09 09:55 | Cardiac Procedure Note-CS/ASA ---
Pre-Procedure Note Pre-Op Procedure Note Date of Available H&P: Oct 27, 2022 Date H&P Reviewed: November 09, 2022 Time H&P Reviewed: 09:54 History & Physical: H&P Reviewed, Patient Examed, No changes noted Pre-Operative Diagnosis: CAD Moderate Sedation PreProcedure Time 09:54 ASA Score 3 Airway Lungs Heart ASA score ASA 1: a normal healthy patient ASA 2: a patient with a mild systemic disease (mid diabetes, controlled hypertension, obesity ASA 3: a patient with a severe systemic disease that limits activity (angina, COPD, prior Myocardial infarction) ASA 4: a patient with an incapacitating disease that is a constant threat to life (CHF, renal failure) ASA 5: a moribund patient not expected to survive 24 hrs. (ruptured aneurysm) ASA 6: a declared brain- patient whose organs are being harvested. For emergent operations, add the letter E after the classification Mallampati Classification Grade 3 Sedation Plan Analgesia, Amnesia, Plan communicated to team members, Discussed options with patient/fam, Discussed risks with patient/fam The patient is an appropriate candidate to undergo the planned procedure, sedation, and anesthesia. The patient immediately re-assessed prior to indication. ANIBAL MODI MD November 09, 2022 09:55
[~2022-11-09 10:00] MED LIST changes: +ACET325T38 PO; -CATHETER FLUSH 10 ML SYR IVP PRN; +HEParin (CATH LAB) 2,000 ML IV ONE; +HEParin 1000 UNIT/ML (10ML VIAL) FOR BOLUS ONE; +LEVE500T6 PO; +LIDOCAINE 1% INJ 20 ML VIAL ONE; +MIDAZOLAM 5 MG/5 ML (VERSED) VIAL ONE; +NITRO DRIP 25000 MCG/D5W 0 ML IV ONE; +NS IV 1000 ML 1,000 ML IV ONE; +NS IV 1000 ML 1,000 ML ONE; +VERAPAMIL 5 MG/2 ML (CALAN) VIAL IV ONE; +fentaNYL INJ 100 MCG/2 ML AMP ONE
--- NOTE | 2022-11-09 11:04 | Discharge Inst-Post CATH ---
Discharge Inst-CATH/EP Problems Reviewed?: Yes Post Cardiac Cath/EP D/C Inst Follow Up/Plan Appointment with Dr. Palma's office in 2 to 4 weeks <b>CARDIAC CATH/EP PROCEDURE DISCHARGE INSTRUCTIONS</b> ACTIVITY * Go Home directly and rest. * Limit activity of the leg (or wrist if it was used) for 7 days including aer obics, swimming, jogging, bicycling, etc. * Restrict stair-climbing for 7 days if possible, if not, climb up with your non-cath leg, then bring together on the same step. * Avoid lifting, pushing, pulling or excessive movement of the affected extremi ty for 7 days. * Customary sexual activity may be resumed after 2 days-use caution not to use a position that strains or causes pain to the affected extremity. * No driving for 24 hours. * NO SMOKING. * Avoid straining for bowel movements for 7 days. * Gentle walking on level ground is allowed. * Returning to work will depend on the type of procedure and the results. Your doctor will discuss this with you. CALL YOUR DOCTOR FOR ANY OF THE FOLLOWING: *If bleeding from the puncture site occurs- Apply gentle pressure to site with clean cloth and call your doctor or EMS. * If a knot or lump forms under the skin, increases in size, or causes pain. * If bruising appears to be worsening or moving further down your leg instead of disappearing. * Temperature above 101 F. CARE OF YOUR GROIN INCISION; * Bruising or purple discoloration of the skin near the puncture site is common. * You may shower only, no bathtub bathing for 5 days. Be careful to avoid slipping as your leg may feel stiff. * If a closure device was used on your femoral artery, please see the attached guide regarding care of the device and your leg. * Leave dressing on FOR 24 hours. CARE OF YOUR WRIST INCISION; * Bruising or purple discoloration of the skin near the puncture site is common. * You may shower. * DO NOT submerge wrist. * Leave dressing on FOR 24 hours. ANIBAL PALMA MD November 09, 2022 11:04
--- NOTE | 2022-11-09 11:07 | Cardiac Cath Report ---
Cardiac Cath Report Physician (s)/Station Engineer Main Line (s) Physician ANIBAL MODI MD Pre-Procedure Diagnosis Pre-Procedure Diagnosis: CAD Post-Procedure Note Procedure Start Date: November 09, 2022 Name of Procedure: Left heart catheterization IFR to the LAD Findings/Procedure Note PROCEDURE NOTE: 62-year-old gentleman with history of hypertension, had an abnormal stress test, scheduled for cardiac catheterization possible PTCA. After explaining the procedure to the patient, all pros and cons were explained, all questions were answered. The patient signed the consent and then he was placed in the cardiac catheterization laboratory. Groin was prepped in SL fashion local anesthesia was used. Sheath placed in the right femoral artery. Saba' right and left catheter were used to access the coronary system. Saba right prolapsed to the left ventricular cavity, pressure was measured, pullback LV to aorta was done. Patient had a borderline lesion in the proximal LAD with some haziness. I was concerned about severe stenosis. IFR was done to the LAD using Saba left guide. And IFR across the lesion was 0.96. At the end of the procedure the sheath was removed. Closure device was deployed FINDINGS: Hemodynamics LV 127/14, end-diastolic pressure of 14 Aorta 128/72 mean of 95 ANATOMY: Left Main is free of obstructive disease Left Anterior Descending is calcified proximally with 40 to 50% stenosis, IFR was 0.96 Left Circumflex is moderate in size with no obstructive disease Right Coronary Artery is dominant artery, moderate in size with no significant obstructive disease LV Gram was not done, pressure was measured CONCLUSION: Moderate proximal LAD stenosis, nonobstructive disease, IFR was 0.92 Dominant right coronary system with nonobstructive disease Normal left ventricular end-diastolic pressure DISCUSSION AND RECOMMENDATION: Continue to maximize medical therapy, no intervention is recommended Anesthesia Type: Conscious Sedation Estimated blood loss (mL): 15 ml Contrast Amount: 65 ml Total Radiation Dose: 291 mGy Post-Procedure Diagnosis Post-operative diagnosis: Chest pain Coronary artery disease Hypertension Hyperlipidemia ANIBAL MODI MD November 09, 2022 11:07
[2022-11-09] MEDS ORDERED: NS IV 1000 ML 1,000 ML IV SCH (11:15)
[2022-11-09] MEDS ORDERED: PATIENT MAY USE OWN MEDS, ALL PO SCH (11:15)
== END 2022-11-09 15:30 ==
LOC: CATH 10:00 → SDC 11:27 → CATH 15:30
PROVIDERS: ATTEND Internal Medicine Cardiovascular Disease
DX: I25.10 Atherosclerotic heart disease of native coronary artery without angina pectoris (principal); I10 Essential (primary) hypertension; I65.23 Occlusion and stenosis of bilateral carotid arteries; E78.2 Mixed hyperlipidemia; R94.31 Abnormal electrocardiogram [ECG] [EKG]; Z28.310 Unvaccinated for COVID-19
CPT/HCPCS: 36430; 71045; 80053; 80061; 81000; 85027; 85610; 85730; 87081; 93005; 93458; 93571; C1760; C1769; C1894; 36415